=== PATIENT | male | born 1970 | race African-American/Black ===

== ENCOUNTER 2018-12-08 12:19 | Emergency (ER) | payer SELFPAY ==
[~2018-12-08] VITALS: Ht 175.3 cm; Wt 83.9 kg
[2018-12-08 12:45] VITALS: BP 150/97
[2018-12-08 14:47] LABS: Urine Bacteria NONE SEEN /hpf (None Seen); Urine Blood Negative /uL (Negative); Urine Mucus FEW (None Seen); Urine Specific Gravity 1.007 (1.001-1.035); Urine WBC <1 /hpf (0 - 3)
== END 2018-12-08 15:16 | disposition left against medical advice (07) ==
LOC: ER 12:24
DX: I83.91 Asymptomatic varicose veins of right lower extremity (principal); F17.210 Nicotine dependence, cigarettes, uncomplicated; F12.10 Cannabis abuse, uncomplicated
CPT/HCPCS: 81001; 93005; 93971